=== PATIENT | female | born 1990 | race Caucasian/White ===

== ENCOUNTER 2024-07-06 19:38 | Emergency (ER) | payer SELFPAY ==
[2024-07-06] MEDS: Sodium Chloride 0.9% 1,000 ML IV ONE (19:43)
[2024-07-06] MEDS: Famotidine 20 MG/2 ML SDV IVPUSH ONE (19:46)
== END 2024-07-06 23:01 | disposition home or self-care (01) ==
LOC: MW.ED 19:38
DX: T78.03XA Anaphylactic reaction due to other fish, initial encounter (principal); Z75.8 Other problems related to medical facilities and other health care; Z88.0 Allergy status to penicillin; Z91.013 Allergy to seafood; X58.XXXA Exposure to other specified factors, initial encounter
CPT/HCPCS: 96361; 96374; 99285; J3490; J7030

== ENCOUNTER 2024-10-23 19:34 | Emergency (ER) | payer SELFPAY ==
[2024-10-23] MEDS: methylPREDNISolone Sodium Succinate 125 MG/2 ML SDV IVPUSH ONE (19:57)
[2024-10-23] MEDS: diphenhydrAMINE 50 MG/ML SDV IVPUSH ONE (19:57)
[2024-10-23] MEDS: Famotidine 20 MG/2 ML SDV IVPUSH ONE (19:57)
== END 2024-10-23 22:04 | disposition home or self-care (01) ==
LOC: MW.ED 19:34
DX: R05.9 Cough, unspecified (principal); T78.1XXA Other adverse food reactions, not elsewhere classified, initial encounter; Z90.49 Acquired absence of other specified parts of digestive tract; Z88.0 Allergy status to penicillin; Z91.018 Allergy to other foods; Z79.899 Other long term (current) drug therapy; Z75.8 Other problems related to medical facilities and other health care
CPT/HCPCS: 71045; 96374; 96375; 99283; J1200; J2919

== ENCOUNTER 2025-07-10 17:13 | Emergency (ER) | payer BC ==
[2025-07-10] MEDS ORDERED: Sodium Chloride 0.9% 2.5 ML Syringe FLUSH PRN (17:22)
[2025-07-10] MEDS ORDERED: Sodium Chloride 0.9% 10 ML Syringe FLUSH PRN (17:22)
[2025-07-10 17:27] LABS: BASOPHILS ABSOLUTE AUTO 0.08 K/uL (0.00-0.20); BASOPHILS PERCENT AUTO 0.7 % (0.0-1.0); EOSINOPHILS ABSOLUTE AUTO 0.33 K/uL (0.00-0.45); EOSINOPHILS PERCENT AUTO 2.9 % (0.0-6.0); IMMATURE GRAN ABSOLUTE AUTO 0.03 K/uL (0.00-0.05); IMMATURE GRAN PERCENT AUTO 0.3 % (0.0-0.4); LYMPHOCYTES ABSOLUTE AUTO 3.33 K/uL (1.00-4.80); LYMPHOCYTES PERCENT AUTO 29.0 % (24.0-44.0); MEAN PLATELET VOLUME 9.4 fL (9.4-12.3); MONOCYTES ABSOLUTE AUTO 0.97 K/uL (0.00-0.80); MONOCYTES PERCENT AUTO 8.4 % (0.0-8.0); NEUTROPHILS ABSOLUTE AUTO 6.74 K/uL (1.80-7.70); NEUTROPHILS PERCENT AUTO 58.7 % (41.0-71.0); NRBC ABSOLUTE 0.00 K/uL (0.00-0.02); NRBC PERCENT 0.0 /100WBC (0.0-0.2); PLATELET COUNT,PLT 291 K/uL (150-400); RED BLOOD CELL COUNT 4.67 M/uL (4.10-5.30); WHITE BLOOD CELL COUNT,WBC 11.48 K/uL (3.9-11.3)
[2025-07-10] MEDS: Iopamidol 755 Mg/ML 100 ML Bottle IVPUSH ONE (17:34)
[2025-07-10 17:43] LABS: INR < 0.93 (0.86-1.11); PTT,PARTIAL THROMBOPLSTIN TIME 30.2 SEC (23.9-30.7)
[2025-07-10 17:48] LABS: A/G RATIO 1.0 (0.9-1.6); ALANINE AMINOTRANSFERASE,ALT 39 IU/L (14-63); ASPARTATE AMNIOTRANSFERASE,AST 18 IU/L (15-37); BILIRUBIN TOTAL 0.2 mg/dL (0.2-1.0); BLOOD UREA NITROGEN,BUN 12 mg/dL (7.0-18.0); CARBON DIOXIDE,CO2 26.2 mmol/L (21.0-32.0); CHLORIDE,CL 103 mmol/L (98-107); CREATININE 0.9 mg/dL (0.6-1.0); GLUCOSE RANDOM 103 mg/dL (74-106); POTASSIUM,K 3.2 mmol/L (3.5-5.1); PROTEIN TOTAL,TP 7.8 g/dL (6.4-8.2); SODIUM,NA 141 mmol/L (136-145)
[2025-07-10 18:00] LABS: ESTIMATED GFR 86 mL/min (>60)
[2025-07-10] MEDS: Tenecteplase 25 MG KIT IVPUSH ONE (18:02)
== END 2025-07-10 18:58 ==
LOC: MW.ED 17:13
DX: I63.9 Cerebral infarction, unspecified (principal); R47.1 Dysarthria and anarthria; Z88.0 Allergy status to penicillin; Z91.013 Allergy to seafood; Z79.899 Other long term (current) drug therapy; Z90.49 Acquired absence of other specified parts of digestive tract
CPT/HCPCS: 36415; 37195; 70450; 70496; 70498; 80053; 82947; 84484; 84703; 85025; 85610; 85730; 93005; 99291; J3101; Q9967; 93010; 99285